=== PATIENT | female | born 1985 | race African-American/Black ===

== ENCOUNTER 2020-06-23 05:41 | Emergency (ER) | payer MEDICAID ==
[~2020-06-23] VITALS: Ht 170.2 cm; Wt 60.0 kg
--- NOTE | 2020-06-23 06:55 | PHYS DOC ---
Past Medical History Past Medical History: Anxiety Past Surgical History: Other Additional Past Surgical Histo: HERNIA Smoking Status: Never Smoker Alcohol Use: None General Adult EDM: Chief Complaint: VAGINAL PROBLEM HPI: HPI: 34 yo female, past medical history of anxiety, presents to the ED with complaints of burning and itchy vaginal discharge for the past week. She has had 2 unprotected male sexual partners in the past 3 months. States 1 of her male partners had a " weird feeling," when urinating. No prior history of sexual transmitted infection. Last Pap smear was within the past 3 years. Last menstrual period was in May. Takes no routine medications, has no known allergies. Has no routine primary care physician. Review of systems: Denies associated fever, chills, cough, sore throat, dyspnea, chest pain, nausea, vomiting, diarrhea, abdominal or back pain, neck stiffness, headache, vaginal bleeding, abnormal vaginal discharge, dyspareunia, rash, leg swelling, hemoptysis, myalgias, flank pain, dysuria, hematuria. Review of Systems: Review of Systems: Constitutional: Denies fever or chills. [] Eyes: Denies change in visual acuity. [] HENT: Denies nasal congestion or sore throat. [] Respiratory: Denies cough or shortness of breath. [] Cardiovascular: Denies chest pain or edema. [] GI: Denies abdominal pain, nausea, vomiting, or diarrhea. [] : Denies dysuria. [] Musculoskeletal: Denies back pain or joint pain. [] Integument: Denies rash. [] Neurologic: Denies headache, focal weakness or sensory changes. [] Endocrine: Denies polyuria or polydipsia. [] Lymphatic: Denies swollen glands. [] Psychiatric: Denies depression or anxiety. [] Allergies: Allergies: Allergies Coded Allergies Type Severity Reaction Last Updated Verified No Known Drug Allergies 06/23/20 No Physical Exam: PE: Constitutional: Well developed, well nourished, no acute distress, non-toxic ap pearance. [] HENT: Normocephalic, atraumatic, Eyes: EOMI, conjunctiva normal, Neck: Normal range of motion, supple, Cardiovascular:Heart rate regular rhythm, no murmur [] Lungs & Thorax: Speaking full sentences, bilateral equal chest rise Abdomen: soft, no tenderness, Skin: Warm, dry, no erythema, no rash. [] Back: No tenderness, no CVA tenderness. [] Extremities: No tenderness, no cyanosis, no clubbing, ROM intact, no edema. [] Neurologic: Alert and oriented X 3, no focal deficits noted. [] Psychologic: Affect normal, judgement normal, mood normal. [] Pelvic: Chaperoned by RN, normal external genitalia, cervical loss closed with no CMT or adnexal tenderness, no cervical erythema, thick white discharge Current Patient Data: Labs: Laboratory Tests Test 06/23/20 06:11 POC Urine HCG, Qualitative Hcg negative (Negative) Vital Signs: Vital Signs Date Time Temp Pulse Resp B/P (MAP) Pulse Ox O2 Delivery O2 Flow Rate FiO2 06/23/20 05:50 98.6 86 16 118/78 (91) 99 Room Air 98.6 EKG: EKG: [] Radiology/Procedures: Radiology/Procedures: [] Course & Med Decision Making: Course & Med Decision Making Pertinent Labs and Imaging studies reviewed. (See chart for details) Concern for itchy vaginal discharge, patient declined treatment for chlamydia or gonorrhea, will call for results in a few days. Wet prep concerning for bacterial vaginosis, no yeast or trich. Patient will be treated with Flagyl and probiotics. Strict ED return precautions given for severe worsening abdominal or back pain or fever-was educated that asymptomatic sti is possible, clinical exam not consistent with PID. Encouraged urgent outpatient follow-up with PMD or local health department for blood-borne sexual transmitted infection testing. Life-threatening processes were considered but are low suspicion at this time, given history and physical exam. Pt was educated on all prescription medications and adverse effects. All patient's questions were answered and pt was stable at time of discharge. Differential includes aortic dissection, aortic aneurysm, acute coronary syndrome, surgical abdomen (appendicitis, cholecystitis, ischemic bowel, stran gulated hernia, etc), bowel obstruction or volvulus, bladder outlet obstruction, gastrointestinal bleeding, inflammatory bowel disease, peptic ulcer disease, sepsis, diverticular disease, ureterolithiasis, nephrolithiasis, ovarian torsion, ectopic , vaginal hemorrhage of infection I spoken with the patient and her caregivers. I explained the patient's condition, diagnoses and treatment plan based on the information available to me at this time. I have answered the patient and her caregiver's questions and addressed any concerns. The patient and her caregivers have a good understanding of patient's diagnosis, condition and treatment plan as can be expected at this point. Vital signs have been stable. Patient's condition is stable and appropriate for discharge from the emergency department. Patient will pursue further outpatient evaluation with primary care physician or other designated or consulting physician as outlined in the discharge instructions. The patient and/or caregivers are agreeable to this plan of care and follow-up instructions have been explained in detail. The patient and/or caregivers have received these instructions in written form and have expressed an understanding of the discharge instructions. The patient and/or caregivers are aware that any significant change of condition or worsening of symptoms should prompt immediate return to this or the closest emergency department or call to 911. BioSET Disclaimer: BioSET Disclaimer: This electronic medical record was generated, in whole or in part, using a voice recognition dictation system. Departure Departure Impression: Primary Impression: Bacterial vaginosis Additional Impression: Itching in the vaginal area Disposition: 01 HOME, SELF-CARE Condition: STABLE Referrals: NO PCP (PCP) Patient Instructions: Bacterial Vaginosis Additional Instructions: Luci Chowdhury MD in 1-2 weeks to establish a pcp [facility] Special[facility] [place] Address: [address] [place] [address] Scripts Metronidazole (FLAGYL) 500 Mg Tablet 1 TAB PO BID for 7 Days, #14 TAB Prov: JANUARY DELACRUZ DO 06/23/20 Lactobacillus Acidophilus (Probiotic Acidophilus) 1 Each Tablet 1 TAB PO DAILY for 30 Days, #30 TAB 0 Refills Prov: JANUARY DELACRUZ DO 06/23/20 Justicifation of Admission Dx: Justifications for Admission: Justification of Admission Dx: N/A JANUARY DELACRUZ DO Jun 23, 2020 06:55
[2020-06-23 07:24] LABS: BILIRUBIN,URINE NEGATIVE (NEG); CLARITY,URINE CLEAR; COLOR,URINE YELLOW; NITRITE,URINE NEGATIVE (NEG); PH,URINE 5.5 (<5.0-8.0); PROTEIN,URINE NEGATIVE (NEG-TRACE); UROBILINOGEN,URINE 0.2 mg/dL (0.2 mg/dL)
[2020-06-23] MEDS ORDERED: cefTRIAXone IM 250 MG VIAL IM ONE (07:30)
[2020-06-23] MEDS ORDERED: AZITHROMYCIN 250 MG TABLET. PO ONE (07:30)
[2020-06-23 07:52] LABS: AMORPHOUS SEDIMENT,UR PRESENT /HPF; BACTERIA,URINE FEW /HPF (0-FEW); SQUAMOUS EPITHELIAL CELL,UR MOD /LPF
[2020-06-23] MEDS ORDERED: FLUC150T2 PO (08:28)
[2020-06-23] MEDS ORDERED: LACT1TAB24 PO (08:29)
[2020-06-23] MEDS ORDERED: FLUCONAZOLE 100 MG TABLET. PO ONE (08:30)
[2020-06-23 08:59] VITALS: BP 110/67
[2020-06-23] MEDS ORDERED: METR500T PO (09:07)
[2020-06-25 19:09] LABS: GC PROBE Negative (Negative)
== END 2020-06-23 09:20 | disposition home or self-care (01) ==
LOC: ER 05:41
DX: N76.0 Acute vaginitis (principal); B96.89 Other specified bacterial agents as the cause of diseases classified elsewhere; L29.2 Pruritus vulvae; F41.9 Anxiety disorder, unspecified; Z98.890 Other specified postprocedural states
CPT/HCPCS: 81001; 81025; 87491; 87591; 99285; Q0111